=== PATIENT | female | born 1945 | race Caucasian/White ===

== ENCOUNTER 2022-03-23 08:24 | Emergency (ER) | payer MEDICARE | END 2022-03-23 08:58 | disposition left against medical advice (07) | LOC: ER1 08:24 | DX: Z53.21 Procedure and treatment not carried out due to patient leaving prior to being seen by health care provider (principal) ==

== ENCOUNTER 2022-03-23 09:40 | Emergency (ER) | payer MEDICARE ==
[2022-03-23 10:55] LABS: BUN/CREATININE RATIO 16 (0-10)
[2022-03-23 11:29] LABS: HEMOGLOBIN 13.3 gm/dl (12.3-15.3); RED BLOOD COUNT 4.33 M/UL (4.00-5.10); WHITE BLOOD COUNT 5.2 K/UL (4.5-11.0)
== END 2022-03-23 12:20 | disposition home or self-care (01) ==
LOC: ER1 09:40
PROVIDERS: Emergency Medicine
DX: N13.2 Hydronephrosis with renal and ureteral calculous obstruction (principal); K80.20 Calculus of gallbladder without cholecystitis without obstruction; Z90.710 Acquired absence of both cervix and uterus; Z90.89 Acquired absence of other organs; Z85.42 Personal history of malignant neoplasm of other parts of uterus
CPT/HCPCS: 80053; 81001; 82550; 82553; 83690; 84484; 85025; 87077; 87086; 87186; 99284

== ENCOUNTER 2022-03-24 20:18 | Emergency (ER) | payer MEDICARE ==
[2022-03-24 21:54] LABS: HEMOGLOBIN 13.1 gm/dl (12.3-15.3); RED BLOOD COUNT 4.29 M/UL (4.00-5.10); WHITE BLOOD COUNT 6.6 K/UL (4.5-11.0)
[2022-03-24 22:12] LABS: BUN/CREATININE RATIO 18 (0-10)
[2022-03-26 05:50] LABS: HEMOGLOBIN 11.4 gm/dl (12.3-15.3)
[2022-03-26 05:51] LABS: RED BLOOD COUNT 3.74 M/UL (4.00-5.10); WHITE BLOOD COUNT 3.9 K/UL (4.5-11.0)
[2022-03-26 06:32] LABS: BUN/CREATININE RATIO 16 (0-10)
== END 2022-03-26 10:49 | disposition short-term general hospital (02) ==
LOC: ER1 20:18
PROVIDERS: Emergency Medicine; Family Medicine
DX: N20.1 Calculus of ureter (principal); N39.0 Urinary tract infection, site not specified; I10 Essential (primary) hypertension; Z90.710 Acquired absence of both cervix and uterus
CPT/HCPCS: 80053; 81001; 83605; 85025; 87040; 87077; 87086; 87186; 96374; 96375; 96376; 99284; J0696; J1170; J1885; J2270; J2405